=== PATIENT | male | born 1990 | race Caucasian/White ===

== ENCOUNTER 2023-07-07 20:06 | Emergency (ER) | payer MEDICAID ==
[~2023-07-07] VITALS: Ht 172.7 cm; Wt 95.0 kg
[~2023-07-07 20:06] MED LIST: COR3 PO; FURO40TA5 MT; LOSA25TA26 PO; POTA-205 MT; QUET50TA PO; SPIR25TA PO
[2023-07-07 20:46] VITALS: BP 97/72; PULSE 99; RESP 18; TEMP 97.7; O2SAT 99
[2023-07-07 21:57] LABS: BASOPHILS % 1.9 % (0.0-2.0); EOSINOPHILS % 0.5 % (0.0-5.0); HEMATOCRIT. 42.5 % (42.0-52.0); HEMOGLOBIN. 13.8 g/dL (14.0-18.0); LYMPHOCYTES % 26.9 % (20.0-50.0); MEAN CORPUSCULAR HEMOGLOBIN 27.5 pg (28.0-32.0); MEAN CORPUSCULAR HGB CONC 32.4 g/dL (31.0-37.0); MEAN CORPUSCULAR VOLUME 84.8 fL (80.0-94.0); MEAN PLATELET VOLUME 7.5 fl (7.4-10.4); NEUTROPHILS % 63.7 % (40.0-76.0); PLATELET 309 x1000/uL (130-400); RED BLOOD CELL COUNT 5.01 mill/uL (4.7-6.1); RED CELL DISTRIBUTION WIDTH 16.1 % (11.6-14.6); WHITE BLOOD COUNT 7.6 x1000/uL (4.5-11.0)
[2023-07-07 22:04] LABS: INR 1.2
[2023-07-07 22:08] LABS: ALANINE AMINOTRANSFERASE 126 IU/L (10-49); ALBUMIN 3.4 g/dL (3.2-4.8); ASPARTATE AMINOTRANSFERASE 30 IU/L (<34); BILIRUBIN TOTAL 1.5 mg/dL (0.1-1.0); CALCIUM 8.7 mg/dL (8.7-10.4); CARBON DIOXIDE 24 mEq/L (21-32); CHLORIDE 97 mEq/L (98-107); CREATININE 1.1 mg/dL (0.6-1.3); GLUCOSE 103 mg/dL (70-105); POTASSIUM 5.1 mEq/L (3.5-5.1); PROTEIN TOTAL 7.3 g/dL (6.0-8.3); SODIUM 131 mEq/L (136-145); UREA NITROGEN BLOOD 30 mg/dL (9-23)
[2023-07-07 22:19] LABS: TROPONIN I HIGH SENSITIVITY 355 ng/L (3.0-53)
== END 2023-07-08 02:22 | disposition home or self-care (01) ==
LOC: ER 20:06
DX: I50.9 Heart failure, unspecified (principal); F15.90 Other stimulant use, unspecified, uncomplicated
CPT/HCPCS: 36415; 71045; 80053; 83880; 84484; 85025; 93005; 99285

== ENCOUNTER 2023-09-17 13:58 | Inpatient (IN) | payer MEDICAID ==
[~2023-09-17] VITALS: Ht 177.8 cm; Wt 105.2 kg
[2023-09-17 14:00] VITALS: O2SAT 97
[2023-09-17] MEDS: FUROSEMIDE 40MG/4ML VIAL IVP ONE (16:00)
[2023-09-17] MEDS: LORAZEPAM 2MG/ML INJ IV ONE (16:00)
[2023-09-17 16:57] LABS: BASOPHILS % 1.2 % (0.0-2.0); EOSINOPHILS % 0.7 % (0.0-5.0); HEMATOCRIT. 38.9 % (42.0-52.0); HEMOGLOBIN. 12.7 g/dL (14.0-18.0); LYMPHOCYTES % 14.7 % (20.0-50.0); MEAN CORPUSCULAR HEMOGLOBIN 26.1 pg (28.0-32.0); MEAN CORPUSCULAR HGB CONC 32.6 g/dL (31.0-37.0); MEAN CORPUSCULAR VOLUME 80.1 fL (80.0-94.0); MEAN PLATELET VOLUME 8.1 fl (7.4-10.4); MONOCYTES % 10.7 % (2.0-8.0); NEUTROPHILS % 72.7 % (40.0-76.0); PLATELET 242 x1000/uL (130-400); RED BLOOD CELL COUNT 4.85 mill/uL (4.7-6.1); RED CELL DISTRIBUTION WIDTH 19.1 % (11.6-14.6)
[2023-09-17 17:12] LABS: ALANINE AMINOTRANSFERASE 13 IU/L (10-49); ALBUMIN 3.3 g/dL (3.2-4.8); ASPARTATE AMINOTRANSFERASE 26 IU/L (<34); BILIRUBIN TOTAL 2.3 mg/dL (0.1-1.0); CALCIUM 8.2 mg/dL (8.7-10.4); CARBON DIOXIDE 25 mEq/L (21-32); CHLORIDE 96 mEq/L (98-107); CREATININE 1.3 mg/dL (0.6-1.3); GLUCOSE 104 mg/dL (70-105); POTASSIUM 5.6 mEq/L (3.5-5.1); PROTEIN TOTAL 6.6 g/dL (6.0-8.3); SODIUM 130 mEq/L (136-145); UREA NITROGEN BLOOD 30 mg/dL (9-23)
[2023-09-17 17:26] LABS: ETHANOL BLOOD < 10 mg/dL (<10)
[2023-09-17] MEDS ORDERED: SODIUM CHLORIDE 0.9% 500 ML IV NR (18:00)
[2023-09-17] MEDS: SODIUM POLYSTYRENE SULFONATE 15 G/60 ML BOT PO NR (18:30)
[2023-09-18 00:28] VITALS: BP 116/91; PULSE 103; RESP 23; TEMP 98.2
[2023-09-18 08:00] VITALS: BP 108/82; PULSE 116; PULSE 55; RESP 12; RESP 24; TEMP 97.7; TEMP 98
[2023-09-18] MEDS: QUETIAPINE FUMARATE 50MG TABLET PO SCH (08:51)
[2023-09-18] MEDS: FUROSEMIDE 40MG/4ML VIAL IVP SCH (08:51)
[2023-09-18] MEDS: ENOXAPARIN 30MG/0.3ML SYR SUBCUT SCH (08:52)
[2023-09-18] MEDS: ASPIRIN 81MG TABLET PO SCH (08:52)
[2023-09-18] MEDS: LOSARTAN 50 MG TABLET PO SCH (09:00)
[2023-09-18] MEDS: CARVEDILOL 3.125 MG TABLET PO SCH (09:00)
[2023-09-18 09:43] LABS: BASOPHILS % 0.7 % (0.0-2.0); EOSINOPHILS % 0.2 % (0.0-5.0); HEMATOCRIT. 41.6 % (42.0-52.0); HEMOGLOBIN. 13.1 g/dL (14.0-18.0); LYMPHOCYTES % 15.3 % (20.0-50.0); MEAN CORPUSCULAR HEMOGLOBIN 25.4 pg (28.0-32.0); MEAN CORPUSCULAR HGB CONC 31.6 g/dL (31.0-37.0); MEAN CORPUSCULAR VOLUME 80.6 fL (80.0-94.0); MEAN PLATELET VOLUME 8.2 fl (7.4-10.4); MONOCYTES % 10.7 % (2.0-8.0); NEUTROPHILS % 73.1 % (40.0-76.0); PLATELET 251 x1000/uL (130-400); RED BLOOD CELL COUNT 5.16 mill/uL (4.7-6.1); RED CELL DISTRIBUTION WIDTH 19.2 % (11.6-14.6); WHITE BLOOD COUNT 6.4 x1000/uL (4.5-11.0)
[2023-09-18 10:57] LABS: CALCIUM 8.5 mg/dL (8.7-10.4); CARBON DIOXIDE 25 mEq/L (21-32); CHLORIDE 96 mEq/L (98-107); CREATININE 1.3 mg/dL (0.6-1.3); GLUCOSE 96 mg/dL (70-105); POTASSIUM 5.2 mEq/L (3.5-5.1); SODIUM 131 mEq/L (136-145); UREA NITROGEN BLOOD 30 mg/dL (9-23)
[2023-09-18] MEDS ORDERED: LORAZEPAM 2MG/ML INJ IV PRN (11:00)
[2023-09-18 12:00] VITALS: BP_SYST 108; BP_SYST 97; BP_DIAS 73; BP_DIAS 82; PULSE 94; PULSE 97; RESP 16; RESP 18; TEMP 98; TEMP 98.3
[2023-09-18 16:00] VITALS: BP 108/82; PULSE 100; RESP 24; TEMP 98.6
[2023-09-18 18:21] LABS: TROPONIN I HIGH SENSITIVITY 216 ng/L (3.0-53)
[2023-09-18 20:00] VITALS: BP 109/80; PULSE 98; RESP 16; TEMP 97.8
[2023-09-19] VITALS: BP 104/79; PULSE 97; RESP 17; TEMP 98
[2023-09-19 04:00] VITALS: BP 103/73; PULSE 98; RESP 15; TEMP 98
[2023-09-19 08:00] VITALS: BP 101/65; PULSE 101; RESP 18; TEMP 97.9
[2023-09-19 12:00] VITALS: BP 99/63; PULSE 105; RESP 22; TEMP 98
[2023-09-19 16:00] VITALS: BP 100/66; PULSE 101; RESP 22; TEMP 97.8
[2023-09-19] MEDS: METOLAZONE 2.5MG TABLET PO NR (17:20)
[2023-09-19 18:47] LABS: CALCIUM 8.1 mg/dL (8.7-10.4); CARBON DIOXIDE 29 mEq/L (21-32); CHLORIDE 97 mEq/L (98-107); GLUCOSE 103 mg/dL (70-105); POTASSIUM 3.8 mEq/L (3.5-5.1); SODIUM 132 mEq/L (136-145); UREA NITROGEN BLOOD 26 mg/dL (9-23)
== END 2023-09-19 19:55 | disposition short-term general hospital (02) | DRG 145 ==
LOC: ER 13:58 → 3WST 17:55 → EDBEDREQ 17:56 → EDBEDREQTM 17:56
PROVIDERS: ADMIT Internal Medicine; ATTEND Internal Medicine
DX: J68.0 Bronchitis and pneumonitis due to chemicals, gases, fumes and vapors (principal); J96.00 Acute respiratory failure, unspecified whether with hypoxia or hypercapnia; I50.23 Acute on chronic systolic (congestive) heart failure; F15.90 Other stimulant use, unspecified, uncomplicated; Z91.148 Patient's other noncompliance with medication regimen for other reason
CPT/HCPCS: 36415; 71045; 80048; 80053; 80320; 83880; 84484; 85025; 93005; 99291; J1650; J1940; J2060; G0480

== ENCOUNTER 2023-11-09 14:21 | Inpatient (IN) | payer MEDICAID ==
[~2023-11-09] VITALS: Ht 177.8 cm; Wt 89.1 kg
[2023-11-09] MEDS: FUROSEMIDE 40MG/4ML VIAL IVP ONE (14:48)
[2023-11-09 15:09] LABS: BASOPHILS % 0.8 % (0.0-2.0); EOSINOPHILS % 0.5 % (0.0-5.0); HEMATOCRIT. 34.1 % (42.0-52.0); LYMPHOCYTES % 9.4 % (20.0-50.0); MEAN CORPUSCULAR HEMOGLOBIN 26.4 pg (28.0-32.0); MEAN CORPUSCULAR HGB CONC 32.1 g/dL (31.0-37.0); MEAN CORPUSCULAR VOLUME 82.4 fL (80.0-94.0); MEAN PLATELET VOLUME 7.3 fl (7.4-10.4); MONOCYTES % 9.3 % (2.0-8.0); PLATELET 321 x1000/uL (130-400); RED BLOOD CELL COUNT 4.14 mill/uL (4.7-6.1); RED CELL DISTRIBUTION WIDTH 24.8 % (11.6-14.6); WHITE BLOOD COUNT 9.2 x1000/uL (4.5-11.0)
[2023-11-09 15:16] LABS: CHLORIDE 103 mEq/L (98-107); POTASSIUM 4.2 mEq/L (3.5-5.1); SODIUM 131 mEq/L (136-145)
[2023-11-09 15:17] LABS: CARBON DIOXIDE 23 mEq/L (21-32)
[2023-11-09 15:18] LABS: DIFFERENTIAL COMMENT 1
[2023-11-09 15:19] LABS: ADD RBC MORPHOLOGY YES
[2023-11-09 15:22] LABS: CREATININE 0.8 mg/dL (0.6-1.3); GLUCOSE 99 mg/dL (70-105); UREA NITROGEN BLOOD 13 mg/dL (9-23)
[2023-11-09 15:23] LABS: ALANINE AMINOTRANSFERASE 28 IU/L (10-49)
[2023-11-09 15:24] LABS: ALBUMIN 3.5 g/dL (3.2-4.8); ASPARTATE AMINOTRANSFERASE 27 IU/L (<34); BILIRUBIN TOTAL 2.5 mg/dL (0.1-1.0); PROTEIN TOTAL 6.3 g/dL (6.0-8.3)
[2023-11-09 15:27] LABS: TROPONIN I HIGH SENSITIVITY 124 ng/L (3.0-53)
[2023-11-09 15:51] LABS: ANISOCYTOSIS 2+; PLATELET ESTIMATE NORMAL; TARGET CELLS 1+
[2023-11-09 18:50] LABS: TROPONIN I HIGH SENSITIVITY 122 ng/L (3.0-53)
[2023-11-10] VITALS: BP_SYST 111; BP_SYST 94; BP_DIAS 50; BP_DIAS 75; PULSE 102; PULSE 103; RESP 19; RESP 20; TEMP 97.7
[2023-11-10] MEDS ORDERED: ONDANSETRON HCL 4MG/2ML INJ IV PRN (00:15)
[2023-11-10] MEDS: ASPIRIN 81MG TABLET ONE (03:05)
[2023-11-10] MEDS: ASPIRIN 81MG TABLET PO SCH (03:10)
[2023-11-10] MEDS: ACETAMINOPHEN 325MG TABLET PO PRN (03:10)
[2023-11-10 04:00] VITALS: BP 101/61; PULSE 104; RESP 19; TEMP 98
[2023-11-10 07:00] LABS: CHLORIDE 103 mEq/L (98-107); POTASSIUM 3.5 mEq/L (3.5-5.1); SODIUM 133 mEq/L (136-145)
[2023-11-10 07:01] LABS: CALCIUM 7.8 mg/dL (8.7-10.4); CARBON DIOXIDE 25 mEq/L (21-32)
[2023-11-10 07:06] LABS: CREATININE 0.7 mg/dL (0.6-1.3); GLUCOSE 113 mg/dL (70-105); UREA NITROGEN BLOOD 11 mg/dL (9-23)
[2023-11-10 08:00] VITALS: BP 110/68; PULSE 114; RESP 19; TEMP 97.7
[2023-11-10] MEDS: CARVEDILOL 3.125 MG TABLET PO SCH (08:18)
[2023-11-10] MEDS: LOSARTAN 25 MG TABLET PO SCH (08:18)
[2023-11-10] MEDS: FUROSEMIDE 40MG TABLET PO SCH (08:18)
[2023-11-10] MEDS: ENOXAPARIN 40MG/0.4ML SYR SUBCUT SCH (08:18)
[2023-11-10] MEDS: FAMOTIDINE 20MG TABLET PO SCH (08:18)
[2023-11-10 12:00] VITALS: BP 111/75; PULSE 103; RESP 19; TEMP 97.6
[2023-11-10] MEDS: FUROSEMIDE 40MG/4ML VIAL IVP SCH (13:00)
[2023-11-10] MEDS: METOLAZONE 2.5MG TABLET PO NR (13:00)
[2023-11-10 16:00] VITALS: BP 100/55; PULSE 92; RESP 19; TEMP 98.1
[2023-11-10 20:00] VITALS: BP 91/56; PULSE 96; RESP 19; TEMP 97.2
[2023-11-11] VITALS: BP 98/48; PULSE 96; RESP 18; TEMP 97.7
[2023-11-11 07:54] LABS: BASOPHILS % 1.3 % (0.0-2.0); EOSINOPHILS % 2.8 % (0.0-5.0); HEMOGLOBIN. 10.9 g/dL (14.0-18.0); LYMPHOCYTES % 15.9 % (20.0-50.0); MEAN CORPUSCULAR HEMOGLOBIN 26.3 pg (28.0-32.0); MEAN CORPUSCULAR VOLUME 81.9 fL (80.0-94.0); MEAN PLATELET VOLUME 7.1 fl (7.4-10.4); MONOCYTES % 12.9 % (2.0-8.0); NEUTROPHILS % 67.1 % (40.0-76.0); PLATELET 370 x1000/uL (130-400); RED BLOOD CELL COUNT 4.15 mill/uL (4.7-6.1); RED CELL DISTRIBUTION WIDTH 24.2 % (11.6-14.6); WHITE BLOOD COUNT 6.4 x1000/uL (4.5-11.0)
[2023-11-11 09:28] LABS: DIFFERENTIAL COMMENT 1
[2023-11-11 13:00] VITALS: BP 99/71; PULSE 95; TEMP 98.5; O2SAT 100
[2023-11-11 13:29] VITALS: PULSE 95
== END 2023-11-11 14:25 | disposition home or self-care (01) | DRG 194 ==
LOC: ER 14:30 → 5WST 17:40 → EDBEDREQ 17:51 → EDBEDREQTM 17:51 → 7EST 23:11
PROVIDERS: ADMIT Internal Medicine; ATTEND Internal Medicine
DX: I11.0 Hypertensive heart disease with heart failure (principal); E87.1 Hypo-osmolality and hyponatremia; D64.9 Anemia, unspecified; F15.90 Other stimulant use, unspecified, uncomplicated; I50.23 Acute on chronic systolic (congestive) heart failure; Z79.899 Other long term (current) drug therapy; Z71.51 Drug abuse counseling and surveillance of drug abuser
CPT/HCPCS: 36415; 71045; 80048; 80053; 83880; 84484; 85025; 93005; 99291; J1650; J1940